=== PATIENT | male | born 1930 | race Caucasian/White ===

== ENCOUNTER 2019-04-21 19:49 | Inpatient (IN) | payer MEDICARE, OTHER ==
[2019-04-21] MEDS ORDERED: Terazosin HCl 5 MG CAP PO SCH (21:00)
--- NOTE | 2019-04-21 21:45 | CT ---
CT LUMBAR SPINE, NONCONTRAST: CLINICAL HISTORY: Pain COMPARISON: None FINDINGS: Fracture: No acute fracture Alignment: No subluxation Disc Spaces, Endplates, Facet Joints: Prominent multilevel degenerative change, with extensive endpla te degeneration and multilevel endplate cavitation compatible with multilevel Schmorl's node formation. Multilevel gas vacuum phenomenon present. Multilevel bilateral degenerative facet hypertro phy. Incidental findings: Atherosclerosis IMPRESSION: Extensive degenerative changes of lumbar spine, without acute compression fracture, or pan bluxation.
[2019-04-21] MEDS ORDERED: Promethazine HCl 25 MG/ML VIAL IM PRN (22:10)
[2019-04-21] MEDS ORDERED: Dextrose 50% Abboject 50 ML SYRINGE SLOW IVP PRN (22:10)
[2019-04-21] MEDS ORDERED: Dextrose 5% in Water 1,000 ML IV PRN (22:10)
[2019-04-21 23:57] LABS: PTT 24.2 SEC (22.9-36.1); Prothrombin Time 12.9 SEC (12.0-14.7)
[2019-04-22 00:11] LABS: Anion Gap 13 mmol/L (10-20); BUN (Urea Nitrogen) 20 mg/dL (8.4-25.7); Calc. Creatinine Clearance 0 mL/min (70-130); Calcium 10.2 mg/dL (7.8-10.44); Carbon Dioxide 30 mmol/L (23-31); Chloride 98 mmol/L (98-107); Estimated GFR-MDRD 83; Glucose 172 mg/dL (83-110); Magnesium 1.7 mg/dL (1.6-2.6); Phosphorus 2.9 mg/dL (2.3-4.7); Potassium 3.9 mmol/L (3.5-5.1); Sodium 137 mmol/L (136-145)
[2019-04-22] MEDS: Gabapentin 100 MG CAP PO SCH ×3 (02:15→11:51)
[2019-04-22] MEDS: Sodium Chloride 0.9% 1,000 ML IV SCH ×4 (02:24→15:06)
[2019-04-22] MEDS: Acetaminophen 500 MG TAB PO SCH ×4 (02:24→18:10)
[2019-04-22 04:30] LABS: PTT 27.4 SEC (22.9-36.1); Prothrombin Time 12.9 SEC (12.0-14.7)
[2019-04-22 04:43] LABS: Anion Gap 12 mmol/L (10-20); BUN (Urea Nitrogen) 19 mg/dL (8.4-25.7); Calc. Creatinine Clearance 41 mL/min (70-130); Calcium 9.5 mg/dL (7.8-10.44); Carbon Dioxide 29 mmol/L (23-31); Chloride 99 mmol/L (98-107); Estimated GFR-MDRD 76; Glucose 336 mg/dL (83-110); Magnesium 1.6 mg/dL (1.6-2.6); Potassium 4.3 mmol/L (3.5-5.1); Sodium 136 mmol/L (136-145)
[2019-04-22 04:47] LABS: Phosphorus 2.8 mg/dL (2.3-4.7)
[2019-04-22] MEDS: hydrALAZINE 20 MG/ML VIAL SLOW IVP PRN ×2 (05:57→15:00)
[2019-04-22] MEDS: HumaLOG 300 UNITS/3 ML VIAL SC PRN ×2 (05:59→18:10)
[2019-04-22] MEDS ORDERED: Atenolol 50 MG TAB PO SCH (09:00)
[2019-04-22] MEDS ORDERED: Insulin Glargine 20 UNITS in Pre-Filled Syringe 1 EACH SC SCH (09:00)
[2019-04-22] MEDS ORDERED: metFORMIN 500 MG TAB PO SCH (09:30)
[2019-04-22] MEDS ORDERED: PHOS-NAK 1 PKT PACK PO SCH (09:30)
[2019-04-22] MEDS ORDERED: Magnesium 2 GM/50 ML 2 GM in Premix Bag 1 BAG IVPB SCH (09:30)
--- NOTE | 2019-04-22 10:51 | HP ---
CHIEF COMPLAINT/HISTORY OF PRESENT ILLNESS: The patient was sent for evaluation of head injury. The patient had been falling 2 to 3 times for the past week. He was seen by [facility] and was diagnosed with subdural hematoma, and the patient was transferred to [facility]. Upon arrival, the patient was alert and awake. GCS 15. Vital signs was stable. No signs of respiratory distress. The patient reported no pain on the head or no blurred vision. REVIEW OF SYSTEMS: Noncontributory except for HPI. PAST MEDICAL HISTORY: Diabetes, CHF, bypass x5, pacemaker, and atrial fibrillation. The patient is on aspirin and Xarelto for atrial fibrillation. CURRENT MEDICATIONS: 1. Aspirin. 2. Xarelto. 3. Atenolol. 4. Diltiazem. 5. Digoxin. 6. Metformin. 7. Levemir. 8. Terazosin. 9. Pantoprazole. 10. Pravastatin. 11. Meclizine. PHYSICAL EXAMINATION: GENERAL: The patient is a pleasant gentleman with no signs of acute distress. He is able to conduct conversation with no signs of confusion. VITAL SIGNS: Heart rate is 90, blood pressure 170/90, respiratory rate is 16, O2 saturation is 98% on room air. LUNGS: Clear bilaterally. HEART: Irregular rate. No murmur. ABDOMEN: Soft and nondistended. No rebounding. EXTREMITIES: Strength in 4 extremities is normal. Neurovascularly intact. NEUROLOGIC: GCS 15. No focal neurologic deficits. BACK: Alignment, normal alignment. No pain on the midline of neck, thoracic, or lumbar. SKIN: There are no signs of bruising or bleeding. Skin is warm and well perfused. DIAGNOSES: 1. Subacute subdural hemorrhage, stable. 2. Diabetes, type 2. 3. History of congestive heart failure. 4. Coronary Bypass. 5. Atrial fibrillation, controlled. 6. Pacemaker. 7. BPH. PLAN: Neurology PALavonne saw the patient , and she was consult with Dr. Ferrara. Neurosurgeon , who recommended admission of the patient for observation and repeat CT tomorrow. Job ID: [id number] MTDD
[2019-04-22] MEDS: Senokot S 8.6-50 MG TAB PO SCH ×2 (10:57→21:28)
[2019-04-22] MEDS: Polyethylene Glycol 3350 17 GM Packet PO SCH (10:57)
--- NOTE | 2019-04-22 11:35 | CON ---
DATE OF CONSULTATION: HISTORY OF PRESENT ILLNESS: The patient is an 88-year-old male with a past medical history of CAD and diabetes on Xarelto and aspirin, who presented to the emergency department as transfer from [place] for acute right-sided subdural hematoma. The patient reports that he has had several dizzy spells earlier this week and had 2 to 3 mechanical falls. One time, he fell while getting into the bath tub, another time he fell forward off the toilet, and last night he got tangled in his feet and fell down onto his bottom. Noncontrast CT of the head done in [place] was notable for a right small frontal acute subdural hematoma. There is no significant mass effect or midline shift. He reports that he stopped his blood thinners several days ago after being advised to discontinue for frequent falls. He was given Kcentra in [place]. He is also complaining of some back pain, but a lumbar CT was negative for any acute injury. PAST MEDICAL HISTORY: Diabetes, hypertension, and coronary artery disease. PAST SURGICAL HISTORY: Pacemaker, cataract surgery, bypass surgery, hernia repair, and tonsillectomy. SOCIAL HISTORY: The patient lives at home. His family does not smoke, drink, or use any drugs. REVIEW OF SYSTEMS: Per HPI. ALLERGIES: CODEINE. PHYSICAL EXAMINATION: CONSTITUTIONAL: GCS 15, comfortable, in no acute distress. HEENT: Head; normocephalic and atraumatic. Eyes; PERRLA. Extraocular movements intact. ENT; oral mucosa is pink, intact, and moist. He has normal voice. NECK: Nontender to palpation. Free active range of motion. No meningismus or nuchal rigidity. RESPIRATORY: Symmetric chest expansion. No evidence of dyspnea. CARDIOVASCULAR: Regular rate and rhythm. MUSCULOSKELETAL: Free active range of motion in all extremities. No focal motor weakness. No reflex asymmetry. NEUROLOGIC: A and O x4. No focal neurologic deficits are appreciated. ASSESSMENT AND PLAN: An 88-year-old male with frequent falls and dizzy episodes this week, who was found to have a small right-sided frontal subdural hematoma without mass effect or midline shift. His repeat a.m. CAT scan is improved. He remains neurologically intact. His aspirin and Xarelto have been stopped, and we recommend discontinuing these medications for at least the next 4 weeks, but possibly indefinitely. At this point, no acute neurosurgical intervention is anticipated. Discussed this plan with Dr. Ferrara, who will also see the patient. Job ID: [id number] MTDD
--- NOTE | 2019-04-22 12:05 | CT ---
CT BRAIN WITHOUT CONTRAST: Date: 04/22/19 INDICATION: Follow-up intracranial hemorrhage. COMPARISON: Prior exam dated 04/21/19 at 1648 hours. FINDINGS: The moderate chronic small vessel white matter ischemic change is similar appearing. The subdural hem atoma overlying the lateral aspect of the right frontal lobe is stable in size measuring 6-7 mm. Sept um pellucidum and third ventricle are midline. Skull and extracranial soft tissues are within normal limits. IMPRESSION: Stable lateral right frontal convexity subdural hematoma. POS: BH
--- NOTE | 2019-04-22 17:21 | ULT ---
BILATERAL CAROTID DUPLEX ULTRASOUND: HISTORY: Atrial fibrillation TECHNIQUE: Grayscale, color-flow and spectral Doppler ultrasound imaging of the extracranial carotid artery syst ems was performed bilaterally. FINDINGS: Mild plaque formation. The peak systolic velocity in the right ICA measures 110 cm/s. The peak systolic velocity in the left ICA measures 82 cm/s. Vertebral flow: antegrade, bilaterally. IMPRESSION: No hemodynamically significant stenosis of Both ICAs.
[2019-04-22] MEDS ORDERED: Insulin Glargine 10 UNITS in Pre-Filled Syringe 1 EACH SC SCH (18:00)
[2019-04-22] MEDS: metFORMIN 500 MG TAB PO SCH (18:10)
[2019-04-22] MEDS ORDERED: Terazosin HCl 5 MG CAP PO SCH (21:00)
[2019-04-22] MEDS: Atorvastatin Calcium 10 MG TAB PO SCH (21:28)
[2019-04-22] MEDS: Terazosin HCl 1 MG CAP PO SCH (21:28)
[2019-04-23] MEDS: hydrALAZINE 20 MG/ML VIAL SLOW IVP PRN ×4 (00:28→21:07)
[2019-04-23] MEDS: Acetaminophen 500 MG TAB PO SCH ×4 (00:31→18:41)
[2019-04-23] MEDS: HumaLOG 300 UNITS/3 ML VIAL SC PRN (05:38)
[2019-04-23 06:21] LABS: #Lymphocytes 1.5 thou/uL (1.20-3.40); #Monocytes 0.7 thou/uL (0.11-0.59); #Neutrophils 4.6 thou/uL (1.40-6.50); %Basophils 0.7 % (0.0-1.0); %Eosinophils 0.7 % (0.0-10.0); %Lymphocytes 22.2 % (21.0-51.0); %Monocytes 9.9 % (0.0-10.0); %Neutrophils 66.6 % (42.0-75.0); Hemoglobin 12.1 g/dL (14.0-18.0); Mean Corpuscular HGB CONC 37.1 g/dL (32.0-36.0); Mean Corpuscular Hemoglobin 34.4 pg (27.0-31.0); Mean Corpuscular Volume 92.8 fL (78.0-98.0); Mean Platelet Volume 7.5 fL (7.4-10.4); Platelet Count 206 thou/uL (130-400); RBC Distribution Width 14.1 % (11.5-14.5); Red Blood Cell (RBC) Count 3.51 mill/uL (4.70-6.10); White Blood Cell (WBC) Count 6.9 thou/uL (4.8-10.8)
[2019-04-23 06:31] LABS: Anion Gap 13 mmol/L (10-20); BUN (Urea Nitrogen) 14 mg/dL (8.4-25.7); Calc. Creatinine Clearance 51 mL/min (70-130); Calcium 9.4 mg/dL (7.8-10.44); Carbon Dioxide 25 mmol/L (23-31); Chloride 101 mmol/L (98-107); Estimated GFR-MDRD Greater than 90; Glucose 196 mg/dL (83-110); Magnesium 1.7 mg/dL (1.6-2.6); Phosphorus 2.9 mg/dL (2.3-4.7); Potassium 3.8 mmol/L (3.5-5.1); Sodium 135 mmol/L (136-145)
[2019-04-23] MEDS ORDERED: Insulin Glargine 30 UNITS in Pre-Filled Syringe 1 EACH SC SCH (09:00)
--- NOTE | 2019-04-23 09:48 | PRG ---
DATE OF SERVICE: 04/22/2019 SUBJECTIVE: The patient was followed up overnight. No overnight events. The patient reports no headache. No nausea or vomiting. Vitals signs through overnight, stable. Blood glucose is still in the high end of 200. Blood pressure 159/73. The patient is able to tolerate diabetic diet and able to void by himself. Overall, the patient feels better and has no complaint. OBJECTIVE: VITAL SIGNS: Blood pressure 156/78, heart rate 85, respiratory rate 20, O2 saturation 95% over room air. GENERAL: The patient is alert and awake, carries on conversation very good, follows commands. GCS is 15. LUNGS: Clear bilaterally. HEART: Regular rate and rhythm. ABDOMEN: Soft and nondistended. EXTREMITIES: Neurovascularly intact. NEUROLOGIC: No neurologic deficits. DIAGNOSES: 1. Subdural hemorrhage, subacute. 2. History of coronary artery disease and 5 bypass. 3. Atrial fibrillation. 4. Pacemaker. 5. Diabetes. 6. High blood pressure. PLAN: CT scan this morning showed that the area of hemorrhage has subsided. The patient has no new neurologic deficits. Vitals, stable. Neurological Surgery saw him this morning, recommended discharge until otherwise; however, Trauma Team will keep him for further workup on his pacemaker , his blood pressure treatment and his presyncope etiology. We will continue to follow up the patient's neurological sign and symptom. Consult EP Team for pacemaker digital content producer, carotid ultrasound, and cardiology ultrasound. Continue diabetic treatment. The patient is to work with PT/OT . Job ID: [id number] MTDD
--- NOTE | 2019-04-23 10:08 | RAD ---
CHEST 1 VIEW: INDICATION: History of subdural hematoma. COMPARISON: Prior exam dated 10/16/2014. FINDINGS: Dual-lead pacemaker is stable. There is stable post-CABG change. No definite consolidation or pleur al effusion is evident. Mild COPD change is stable. Osseous structures unchanged. IMPRESSION: No acute cardiopulmonary abnormality. POS: BH
[2019-04-23] MEDS ORDERED: Acetaminophen 500 MG TAB PO SCH (10:45)
[2019-04-23] MEDS: Polyethylene Glycol 3350 17 GM Packet PO SCH (11:08)
[2019-04-23] MEDS: Senokot S 8.6-50 MG TAB PO SCH ×2 (11:08→20:42)
[2019-04-23] MEDS: metFORMIN 500 MG TAB PO SCH ×2 (11:08→18:41)
[2019-04-23] MEDS: Atenolol 25 MG TAB PO SCH (11:09)
--- NOTE | 2019-04-23 14:48 | PRG ---
DATE OF SERVICE: 04/23/2019 The patient was seen and examined. I agree with Lavonne Gottlieb's evaluation on 04/22/2019. The patient is an 88-year-old man, who was syncopal on Xarelto and was found to have a very small right convexity subdural hematoma. He is clinically intact, complaining only of right-sided tinnitus. CT scan shows stable tiny right convexity subdural hematoma. IMPRESSION AND PLAN: No plans for surgical intervention. We will need to hold anticoagulation for at least 4 weeks, but potentially indefinitely depending on the outcome of syncope workup and fall risk. No specific plans for further clinical and radiographic followup unless he deteriorates. Discussed with the patient and . Job ID: [id number]
[2019-04-23] MEDS: Ondansetron ODT 4 MG TAB PO PRN (15:37)
--- NOTE | 2019-04-23 16:02 | PRG ---
DATE OF SERVICE: 04/23/2019 SUBJECTIVE: Mr. Valladares is an 88-year-old man, status post ground-level fall following a near syncopal episode, on Xarelto. The patient sustained a small right convexity subdural hematoma, which has required no operative interventions. This morning, he is awake and alert. His Shaquille Coma Scale is 15. He is complaining of some nausea. He has not had any emesis nevertheless. He tolerates diet and has adequate urinary output. OBJECTIVE: VITAL SIGNS: Blood pressure 166/80, pulse is 109, respiratory rate is 17, temperature is 98.1 degrees Fahrenheit, and oxygen saturation is 92% on room air. HEENT: Pupils equal, round, and reactive to light and accommodation. HEART: Regular rate and rhythm. No murmurs or gallops auscultated. LUNGS: Clear to auscultation bilaterally. Breathing, regular and nonlabored. ABDOMEN: Soft, nontender, and nondistended. EXTREMITIES: 2+ radial and pedal pulses bilaterally. No ankle edema is present. NEUROLOGIC: No focal deficits present. LABORATORY FINDINGS: Today include a CBC with 6900 white blood cells, hemoglobin and hematocrit 12.1 and 32.6 respectively, and platelet count 206,000. Metabolic profile; sodium 135, potassium is 3.8, chloride is 101, bicarb is 25, BUN is 14, creatinine 0.76, and glucose 196. Magnesium 1.7. Phosphorus 2.9. IMPRESSIONS: 1. Post injury. 2. Status post ground level fall. 3. Small right convexity subdural hematoma, stable. 4. Acute hypokalemia. 5. Acute hypomagnesemia. 6. Acute hypophosphatemia. PLAN: 1. Correct abnormal electrolytes. 2. We will increase activity per Physical and Occupational Therapy. 3. The patient will be transferred to general surgical floor, where we will continue with physical and occupational therapy in anticipation for discharge home tomorrow if he remains stable. Above findings and plan discussed with the patient and his at bedside. They both indicated understanding information given. I have answered their questions. Job ID: [id number]
--- NOTE | 2019-04-23 16:17 | CON ---
DATE OF CONSULTATION: 04/23/2019 REASON FOR CONSULTATION: Falls. PRIMARY WINE CELLAR WORKER: Santino Sneed MD HISTORY OF PRESENT ILLNESS: Mr. Valladares is a pleasant 88-year-old white gentleman, who comes to the hospital after multiple falls. He was getting a shower on Tuesday and he fell and hit his head. He had at least three or more falls since, he had one on and had one on Tuesday. He was brought in and was found to have a small subdural hematoma, so his blood thinners were stopped, and he was admitted for further evaluation and care. Surgery has evaluated him, and his bleeding is small, so he is not a candidate for any surgical intervention. He has a history of symptomatic bradycardia and he had a pacemaker implanted on July 14, 2018. He had interrogation of this device done earlier today, and it shows several brief episodes of atrial tachycardia and atrial fibrillation. The longest one was 30 seconds and this was back in February, nothing on the days where he fell. PAST MEDICAL HISTORY: 1. Type 2 diabetes. 2. Hypertension. 3. Coronary artery disease. 4. Bradycardia, status post pacemaker placement. 5. Paroxysmal atrial fibrillation. 6. Paroxysmal atrial tachycardia. PAST SURGICAL HISTORY: 1. Pacemaker placement in July 2018, by Dr. Sneed. 2. Cataract surgery. 3. CABG x5 in the past. 4. Hernia repair. 5. Tonsillectomy. SOCIAL HISTORY: No alcohol, tobacco, or drugs. Lives at home. REVIEW OF SYSTEMS: A 12-point review of systems was done and was all negative unless stated in the history of present illness. OUTPATIENT MEDICATIONS: Include: 1. Terazosin. 2. Insulin Levemir. 3. Aspirin 81 a day. 4. Metformin 1000 mg b.i.d. 5. Xarelto 20 mg a day. 6. Pravastatin 40 mg at bedtime. 7. Pantoprazole 40 mg a day. 8. Meclizine. 9. Diltiazem 120 mg a day. 10. Atenolol 50 mg a day. ALLERGIES: CODEINE. FAMILY HISTORY: Noncontributory. PHYSICAL EXAMINATION: VITAL SIGNS: Temperature 98.1, pulse 93, respiratory rate 16, and sat 96% on room air, and blood pressure 158/69. GENERAL: Awake, alert, oriented x3. No distress. HEENT: Normocephalic and atraumatic. NECK: Supple. LUNGS: Clear. CARDIOVASCULAR: S1 and S2. No S3 or S4. A grade 2/6 systolic murmur at the right sternal border. ABDOMEN: Soft. Positive bowel sounds. EXTREMITIES: No edema. SKIN: Warm and dry. LABORATORY DATA: Laboratory work was reviewed. CBC with a white count of 6.9, hemoglobin 12, hematocrit 32, platelet count 206. Coags were normal. Chemistries were unremarkable. DIAGNOSTIC DATA: CT of lumbar spine as well as CT of the brain were reviewed. ASSESSMENT AND PLAN: 1. Frequent falls recently. 2. Subdural hematoma secondary to fall and injuring his head. 3. Chronic anticoagulation with Xarelto. 4. Paroxysmal atrial fibrillation. PLAN: 1. His falls were most likely related to being unsteady on his feet. There are no tachy- or vy-arrhythmias seen on the days of the falls. More than likely he had this fall in the bathroom and his 1st fall that he hit his head hard enough to provoke the bleed and he continued to fell more often since then because of that. I do not think there is more workup to be done in this case. I would recommend against any further anticoagulation secondary to falls. I would put him on aspirin once safe from the neurosurgical perspective, which I think is going to be about 4 to 8 weeks. 2. I would recommend physical therapy as well to try to strengthen his core and his lower extremity, teach him how to walk. Thank you for letting me to participate in the care of your patient. We will sign off. Please call with any questions. Job ID: [id number]
--- NOTE | 2019-04-23 17:10 | EKG ---
Test Reason : URGENT Blood Pressure : / mmHG Vent. Rate : 075 BPM Atrial Rate : 075 BPM P-R Int : 000 ms QRS Dur : 088 ms QT Int : 340 ms P-R-T Axes : 000 -37 129 degrees QTc Int : 379 ms Atrial-paced rhythm with prolonged AV conduction Left axis deviation Moderate voltage criteria for LVH, may be normal variant T wave abnormality, consider lateral ischemia Abnormal ECG Confirmed by MARY HADDAD ([id number]) on 04/23/2019 5:10:09 PM Referred By: HORACE Confirmed By:MARY HADDAD
[2019-04-23] MEDS: Atorvastatin Calcium 10 MG TAB PO SCH ×2 (20:45)
[2019-04-23] MEDS: Terazosin HCl 1 MG CAP PO SCH (20:48)
[2019-04-23] MEDS ORDERED: Non-Formulary Item 1 EACH (Terazosin Hcl [Terazosin Hcl] 2 MG) PO SCH (21:00)
[2019-04-24] MEDS: Acetaminophen 500 MG TAB PO SCH ×5 (00:31→22:46)
[2019-04-24] MEDS: Ondansetron ODT 4 MG TAB PO PRN ×2 (00:36→06:21)
[2019-04-24 05:24] LABS: Anion Gap 10 mmol/L (10-20); BUN (Urea Nitrogen) 17 mg/dL (8.4-25.7); Calc. Creatinine Clearance 45 mL/min (70-130); Calcium 9.5 mg/dL (7.8-10.44); Carbon Dioxide 29 mmol/L (23-31); Chloride 97 mmol/L (98-107); Estimated GFR-MDRD 84; Glucose 269 mg/dL (83-110); Magnesium 1.6 mg/dL (1.6-2.6); Phosphorus 3.2 mg/dL (2.3-4.7); Sodium 132 mmol/L (136-145)
[2019-04-24] MEDS ORDERED: PHOS-NAK 1 PKT PACK PO SCH (06:15)
[2019-04-24] MEDS ORDERED: Magnesium 2 GM/50 ML 2 GM in Premix Bag 1 BAG IVPB SCH (06:15)
[2019-04-24] MEDS: HumaLOG 300 UNITS/3 ML VIAL SC PRN (07:43)
[2019-04-24 07:53] VITALS: BMI 19.3
[2019-04-24] MEDS: Senokot S 8.6-50 MG TAB PO SCH ×3 (08:52→19:57)
[2019-04-24] MEDS: Polyethylene Glycol 3350 17 GM Packet PO SCH ×2 (08:52→08:55)
[2019-04-24] MEDS: Atenolol 25 MG TAB PO SCH (08:52)
[2019-04-24] MEDS: metFORMIN 500 MG TAB PO SCH ×2 (08:52→17:56)
[2019-04-24] MEDS: Insulin Glargine 15 UNITS in Pre-Filled Syringe SC SCH (08:55)
[2019-04-24] MEDS ORDERED: Non-Formulary Item 1 EACH (Insulin Detemir [Levemir] 15 UNIT) SQ SCH (09:00)
[2019-04-24] MEDS ORDERED: DILTIAZEM HCL 120 MG PO SCH (09:00)
[2019-04-24] MEDS ORDERED: Ondansetron PF 4 MG/2 ML Vial IVP PRN (09:23)
[2019-04-24] MEDS ORDERED: Scopolamine 1.5 mg/72 hour Patch TD SCH (09:30)
[2019-04-24] MEDS: Metoclopramide 10 MG/10 ML UDCUP PO SCH ×3 (10:58→20:00)
--- NOTE | 2019-04-24 13:39 | PRG ---
DATE OF SERVICE: 04/24/2019 SUBJECTIVE: Mr. Valladares is an 88-year-old man who is post injury day #3, post multiple ground-level falls. The patient sustained a small right convexity subdural hematoma which required no operative intervention. He has had multiple episodes of nausea and nonbilious emesis over the last 36 hours. This morning, he is awake and alert. His nausea is now less frequent. He had one bowel movement yesterday. He is avoiding food this morning for fear of exacerbating his nausea and vomiting. Urinary output has been adequate. PHYSICAL EXAMINATION: VITAL SIGNS: This morning include blood pressure 137/64, pulse is 79, respiratory rate is 23, temperature is 97.8 degrees Fahrenheit, oxygen saturation is 97% on room air. HEENT: This admission, pupils are equal, round, reactive to light and accommodation. HEART: Reveals regular rate and rhythm. No murmurs or gallops auscultated. LUNGS: Clear to auscultation bilaterally. Breathing, regular and nonlabored. ABDOMEN: Soft, moderately distended. Bowel sounds in all 4 quadrants appear normoactive. He has no abdominal tenderness to palpation. EXTREMITIES: Reveal 2+ radial and pedal pulses bilaterally. No ankle edema is present. NEUROLOGIC: Reveals no focal deficits present. LABORATORY FINDINGS: Today includes metabolic profile: Sodium 132, potassium is 4.0, chloride is 97, bicarb is 29, BUN 17, creatinine 0.86, glucose 269, magnesium 1.6, phosphorus 3.2. IMPRESSIONS: 1. Post injury day #3, status post ground-level fall. 2. Small right convexity, acute subdural hematoma, neurologically normal. 3. Acute hypomagnesemia. 4. Acute hypokalemia. 5. Acute hyponatremia. 6. Hyperglycemia. History of diabetes mellitus. PLAN: 1. We will optimize glucose control. 2. Correct abnormal electrolytes. 3. We will increase activity per Physical and Occupational therapy. 4. We will obtain a postvoid bladder scan to establish the patient's postvoid residual volume. Above findings and plan have been discussed with the patient and his at bedside. We anticipate discharging the patient within the next 24 hours once his nausea is resolved. Job ID: [id number]
[2019-04-24] MEDS: Atorvastatin Calcium 10 MG TAB PO SCH (20:01)
[2019-04-24] MEDS: Terazosin HCl 1 MG CAP PO SCH (20:03)
[2019-04-24] MEDS ORDERED: Terazosin HCl 1 MG CAP PO SCH (22:15)
[2019-04-25] MEDS: Acetaminophen 500 MG TAB PO SCH ×2 (05:07→12:56)
[2019-04-25 07:16] LABS: #Eosinphils 0.1 thou/uL (0.0-0.7); #Monocytes 0.6 thou/uL (0.11-0.59); #Neutrophils 4.6 thou/uL (1.40-6.50); %Basophils 0.5 % (0.0-1.0); %Eosinophils 1.2 % (0.0-10.0); %Lymphocytes 15.2 % (21.0-51.0); %Monocytes 9.7 % (0.0-10.0); %Neutrophils 73.3 % (42.0-75.0); Hemoglobin 11.6 g/dL (14.0-18.0); Mean Corpuscular HGB CONC 33.6 g/dL (32.0-36.0); Mean Corpuscular Hemoglobin 30.6 pg (27.0-31.0); Mean Corpuscular Volume 91.1 fL (78.0-98.0); Mean Platelet Volume 6.7 fL (7.4-10.4); Platelet Count 182 thou/uL (130-400); RBC Distribution Width 13.5 % (11.5-14.5); Red Blood Cell (RBC) Count 3.77 mill/uL (4.70-6.10); White Blood Cell (WBC) Count 6.2 thou/uL (4.8-10.8)
[2019-04-25 07:37] LABS: Anion Gap 10 mmol/L (10-20); BUN (Urea Nitrogen) 10 mg/dL (8.4-25.7); Calc. Creatinine Clearance 49 mL/min (70-130); Calcium 9.2 mg/dL (7.8-10.44); Carbon Dioxide 31 mmol/L (23-31); Chloride 99 mmol/L (98-107); Estimated GFR-MDRD 90; Glucose 110 mg/dL (83-110); Magnesium 2.1 mg/dL (1.6-2.6); Phosphorus 3.3 mg/dL (2.3-4.7); Potassium 3.8 mmol/L (3.5-5.1); Sodium 136 mmol/L (136-145)
[2019-04-25] MEDS ORDERED: Pantoprazole 40 MG VIAL IVP SCH (09:00)
[2019-04-25] MEDS: Insulin Glargine 15 UNITS in Pre-Filled Syringe SC SCH (09:23)
[2019-04-25] MEDS: Metoclopramide 10 MG/10 ML UDCUP PO SCH ×2 (09:24→16:28)
[2019-04-25] MEDS: metFORMIN 500 MG TAB PO SCH ×2 (09:25→16:41)
[2019-04-25] MEDS: Atenolol 25 MG TAB PO SCH (09:25)
[2019-04-25] MEDS: Polyethylene Glycol 3350 17 GM Packet PO SCH (11:11)
[2019-04-25] MEDS: Senokot S 8.6-50 MG TAB PO SCH (11:11)
--- NOTE | 2019-04-25 16:02 | DIS ---
DATE OF ADMISSION: 04/21/2019 DATE OF DISCHARGE: 04/25/2019 ADMISSION DIAGNOSES: 1. Multiple recent syncopal type falls, on Xarelto. 2. Right frontal subdural hematoma. 3. Dizziness. DISCHARGE DIAGNOSES: 1. Multiple recent syncopal type falls, on Xarelto. 2. Right frontal subdural hematoma. 3. Dizziness. CONSULTING PHYSICIANS: 1. Dr. Ferrara of Neurosurgery. 2. Dr. Crystal of Cardiology. PROCEDURES: None. HOSPITAL COURSE: The patient is an 88-year-old male, who presented to the emergency department after having multiple recent falls, where he reported dizziness and possibly syncope. He is on Xarelto and has a history of diabetes, CHF, CABG x5, pacemaker, atrial fibrillation, hyperlipidemia, and BPH. He was admitted to the [facility] and repeat head CT was stable. Dr. Ferrara recommended holding aspirin and Xarelto with a followup in clinic. Dr. Crystal was also consulted due to the patient's multiple near syncopal episodes. He did interrogate the pacemaker, reported no significant arrhythmias found. He did sign off at that time. Carotid ultrasound and echo were also completed, which demonstrated no etiology or concern for the syncopal type episodes. The patient also had some nausea and vomiting, which improved over time. He worked with Physical and Occupational Therapy and was ambulating independently with a walker in the hallways. He was tolerating a diabetic diet. Pain was well controlled. He was voiding without difficulties. The patient's reported that they had several walkers and a wheelchair at home that they would feel comfortable using. The patient is to continue work on his balance. DISCHARGE DISPOSITION: Home. DISCHARGE CONDITION: Satisfactory. PHYSICAL EXAMINATION: VITAL SIGNS: Temperature 97.8, pulse 78, respirations 18, oxygen saturation 98% on room air, and blood pressure 152/69. GENERAL: Well-appearing, elderly male, standing up at edge of bed with no signs of acute distress. PULMONARY: Equal chest rise and fall, clear breath sounds bilaterally. No signs of acute respiratory distress. CARDIAC: Regular rate and rhythm. No murmurs, gallops, or rubs. GI: Abdomen is soft, nontender, nondistended. EXTREMITIES: 2+ pulses in all extremities. No significant swelling noted. Gross motor and sensation are intact. NEUROLOGIC: 5/5 strength in the bilateral rn medication, plantar flexion, and dorsiflexion. GCS is 15. Pupils are equal, round, reactive to light bilaterally. DISCHARGE INSTRUCTIONS: The patient is to be discharged home. Activity as tolerated, on a diabetic diet. He is to continue to use a walker. DISCHARGE MEDICATIONS: Include restarting all of his home medications and taking Tylenol for pain. Medications include; 1. Tylenol. 2. Atenolol. 3. Diltiazem. 4. Metformin. 5. Pravastatin. 6. Furosemide. FOLLOWUP APPOINTMENTS: He is to follow up with his primary care provider in 14 days. He is not to take Xarelto or aspirin until he follows up with Neurosurgery. He also to follow up with Dr. Ferrara and his branch retail executive or Dr. Crystal. This is merely a summary of the patient's hospitalization. For full details, please see his medical record in its entirety. Job ID: [id number]
[2019-04-25 16:03] VITALS: BP 173/86; TEMP 98
[2019-04-25] MEDS: HumaLOG 300 UNITS/3 ML VIAL SC PRN (16:41)
[2019-04-25] MEDS ORDERED: Terazosin HCl 1 MG CAP PO SCH (21:00)
== END 2019-04-25 17:41 | disposition home or self-care (01) | DRG 86 ==
LOC: ERS 19:49 → IMCU/EMU 23:16 → ERHOLD 23:29 → IMCU/EMU 04-22 00:50 → SURG B 04-24 18:47
PROVIDERS: ADMIT Surgery; ATTEND Surgery
DX: S06.5X0A Traumatic subdural hemorrhage without loss of consciousness, initial encounter (principal); E87.1 Hypo-osmolality and hyponatremia; Z66 Do not resuscitate; W18.11XA Fall from or off toilet without subsequent striking against object, initial encounter; I50.9 Heart failure, unspecified; I11.0 Hypertensive heart disease with heart failure; I48.0 Paroxysmal atrial fibrillation; I25.10 Atherosclerotic heart disease of native coronary artery without angina pectoris; E11.65 Type 2 diabetes mellitus with hyperglycemia; E87.6 Hypokalemia; E83.42 Hypomagnesemia; E83.39 Other disorders of phosphorus metabolism; Z95.0 Presence of cardiac pacemaker; Y92.012 Bathroom of single-family (private) house as the place of occurrence of the external cause; Z91.81 History of falling; Z88.5 Allergy status to narcotic agent; Z95.1 Presence of aortocoronary bypass graft; Z79.01 Long term (current) use of anticoagulants; Z79.82 Long term (current) use of aspirin; Z79.84 Long term (current) use of oral hypoglycemic drugs; Z79.899 Other long term (current) drug therapy
CPT/HCPCS: 36415; 36416; 70450; 71045; 72131; 80048; 82533; 83735; 84100; 85025; 85610; 85730; 93005; 93010; 93306; 93880; C9113; J0360; J1815; J3475; Q0162